=== PATIENT | female | born 1960 | race Caucasian/White ===

== ENCOUNTER 2017-06-07 08:50 | Outpatient (CLI) | payer OTHER | END 2017-06-07 08:51 | disposition home or self-care (01) | LOC: DTY/OP 08:50 | PROVIDERS: ATTEND Surgery | DX: E66.01 Morbid (severe) obesity due to excess calories (principal) | CPT/HCPCS: 97802 ==

== ENCOUNTER 2017-06-07 10:42 | Outpatient (CLI) | payer BC ==
--- NOTE | 2017-06-07 15:41 | RAD ---
BARIUM SWALLOW ESOPHAGRAM: HISTORY: Reflux. K21.9. COMPARISON: None. TECHNIQUE: The patient was brought to the fluoroscopy suite. All questions were answered. Initially, the patient was given half a dose of gas-forming crystals. The patient tolerated this we ll. Subsequently, thick liquid barium was given. Primary and secondary peristalsis was performed. Ther e is reflux of the mid 1/3 esophagus. Small sliding hiatal hernia. Contrast transited through the GE junction without complication. No diverticulum or extensive mass effect. Next, the patient was put in the BRIDGES position. Again, primary and secondary peristalsis was poor. The stomach was flipped up with organoaxial volvulus. No evidence of obstruction. The proximal small bowel appeared normal. IMPRESSION: 1. Small sliding hiatal hernia with reflux to the mid 1/3 esophagus. 2. Primary and secondary peristalsis, likely sequelae of primary reflux disease. 3. 13 mm barium tablet passed through the gastroesophageal junction without complication. 4. Organoaxial volvulus of the stomach. POS: [facility]
== END 2017-06-07 10:43 | disposition home or self-care (01) ==
LOC: RAD 10:42
PROVIDERS: ATTEND Surgery
DX: K21.9 Gastro-esophageal reflux disease without esophagitis (principal); K44.9 Diaphragmatic hernia without obstruction or gangrene; R19.2 Visible peristalsis; K31.89 Other diseases of stomach and duodenum; E66.01 Morbid (severe) obesity due to excess calories
CPT/HCPCS: 74220; 97802

== ENCOUNTER 2017-07-22 17:11 | Outpatient (CLI) | payer BC ==
[2017-07-22 18:21] LABS: Hematocrit 38.8 % (36.0-47.0); Red Blood Cell (RBC) Count 4.04 mill/uL (4.20-5.40); White Blood Cell (WBC) Count 5.4 thou/uL (4.8-10.8)
[2017-07-22 18:52] LABS: ALT (SGPT) 16 U/L (8-55); AST (SGOT) 23 U/L (5-34); Alkaline Phosphatase 80 U/L (40-150); Anion Gap 11 mmol/L (10-20); BUN (Urea Nitrogen) 11 mg/dL (9.8-20.1); Bilirubin, Direct 0.3 mg/dL (0.1-0.3); Bilirubin, Total 0.7 mg/dL (0.2-1.2); Calc. Creatinine Clearance 0 mL/min (70-130); Calcium 9.4 mg/dL (7.8-10.44); Carbon Dioxide 26 mmol/L (22-29); Chloride 105 mmol/L (98-107); Estimated GFR-MDRD 87; Globulin 2.7 g/dL (2.4-3.5); Protein, Total 6.9 g/dL (6.0-8.3)
--- NOTE | 2017-07-22 19:06 | RAD ---
CHEST TWO VIEWS: History: Pre-operative exam. Comparison: None. FINDINGS: Normal cardiac silhouette. The pulmonary vessels and hilum are normal. No masses or consolidation. No pneumothorax or osseous abnormalities. IMPRESSION: No acute cardiopulmonary process. POS: [facility]
[2017-07-22 20:52] LABS: Neutrophil 48 % (42-75)
--- NOTE | 2017-07-23 13:13 | EKG ---
Test Reason : Blood Pressure : / mmHG Vent. Rate : 056 BPM Atrial Rate : 056 BPM P-R Int : 146 ms QRS Dur : 078 ms QT Int : 418 ms P-R-T Axes : 004 013 041 degrees QTc Int : 403 ms Sinus bradycardia Otherwise normal ECG No previous ECGs available Confirmed by MIRTA PEGUERO ([id number]) on 07/23/2017 1:13:30 PM Referred By: SHAYAN Confirmed By:MIRTA PEGUERO
== END 2017-07-22 17:12 | disposition home or self-care (01) ==
LOC: LABBT 17:11
PROVIDERS: ATTEND Surgery
DX: Z01.818 Encounter for other preprocedural examination (principal); E66.01 Morbid (severe) obesity due to excess calories
CPT/HCPCS: 71020; 80053; 80076; 83036; 85025; 93005; 93010

== ENCOUNTER 2017-07-25 06:58 | Inpatient (IN) | payer BC ==
[2017-07-25] MEDS ORDERED: Heparin 5,000 UNITS/ML VIAL ONE (08:00)
[2017-07-25] MEDS ORDERED: CEFAZOLIN/Water 2 GM/20 ML SYRINGE ONE (08:00)
[2017-07-25] MEDS ORDERED: Bupivacaine/Epinephrine 0.25% 30 ML VIAL ONE (09:12)
[2017-07-25] MEDS ORDERED: Midazolam HCl 2 mg/2 ml Vial ONE ×2 (09:57→09:59)
[2017-07-25] MEDS ORDERED: Fentanyl 100 MCG/2 ML VIAL ONE (09:59)
[2017-07-25] MEDS ORDERED: HYDROmorphone 0.5 MG/0.5 ML SYRINGE ONE ×2 (09:59→12:01)
[2017-07-25] MEDS ORDERED: Lidocaine 1% (PF) 30 ML VIAL ONE (09:59)
[2017-07-25] MEDS ORDERED: Dextrose 5% in Water 1,000 ML IV PRN (11:47)
[2017-07-25] MEDS ORDERED: Promethazine HCl 25 MG/ML VIAL IM PRN ×3 (11:47→11:56)
[2017-07-25] MEDS ORDERED: hydrALAZINE 20 MG/ML VIAL SLOW IVP PRN (11:47)
[2017-07-25] MEDS ORDERED: Dextrose 50% Abboject 50 ML SYRINGE SLOW IVP PRN (11:47)
[2017-07-25] MEDS ORDERED: diphenhydrAMINE 50 MG/ML VIAL IVP PRN ×2 (11:47→11:56)
[2017-07-25] MEDS ORDERED: Hydrocodone-Acetamin 15 ML UDCUP PO PRN (11:47)
[2017-07-25] MEDS ORDERED: Ondansetron HCl/PF 4 MG/2 ML Vial IVP PRN ×3 (11:47→11:56)
[2017-07-25] MEDS ORDERED: HYDROmorphone 2 MG/ML VIAL SLOW IVP PRN (11:56)
[2017-07-25] MEDS ORDERED: Naloxone HCl 0.4 mg/ml Vial IV PRN (11:56)
[2017-07-25] MEDS ORDERED: HYDROmorphone 10 mg/100 ml CADD IVPB PRN (11:56)
[2017-07-25] MEDS ORDERED: Zolpidem Tartrate 5 MG TAB PO PRN (11:56)
[2017-07-25] MEDS ORDERED: Promethazine HCl 25 MG/ML VIAL SLOW IVP PRN (11:56)
[2017-07-25] MEDS ORDERED: diphenhydrAMINE 25 MG CAP PO PRN (11:56)
[2017-07-25] MEDS ORDERED: diphenhydrAMINE 50 MG/ML VIAL IM PRN (11:56)
[2017-07-25] MEDS ORDERED: Communication Order-Pharmacy FS SCH (12:00)
--- NOTE | 2017-07-25 12:14 | OP ---
PREOPERATIVE DIAGNOSIS: Gastric torsion with slipped lap band. SURGEON: Mart Christianson M.D. PROCEDURE: Laparoscopic removal of lap band and port with sleeve gastrectomy. INDICATIONS: This is a 56-year-old female who had a lap band that started having severe dysphagia de spite an empty band swallow showed what appeared to be gastric torsion. FINDINGS: The fundus was torsed, but was able to be untorsed. A 38-Mongolian bougie was used. DESCRIPTION OF PROCEDURE: After informed consent was obtained, the patient was taken to the operatin g room and given general endotracheal anesthesia, placed in the supine position. The abdomen was pre pped and draped in the usual fashion. Local anesthesia infiltrated subcutaneously and deep. A 12 mm incision was performed approximately 8 inches below the xiphoid slightly to the left. Veress needle inserted. Drop test performed. Pneumoperitoneum was created to a volume of 2 liters of carbon diox miguel. Utilizing a bladeless 12 mm trocar and 0 degree laparoscope, direct visual entry in the abdomin al cavity was performed. Pneumoperitoneum was then created to a pressure of 15 mmHg. The patient wa s placed in steep reverse Trendelenburg position. Nathansen liver retractor inserted. Left lobe of liver retracted superiorly. Pylorus identified a 12 mm port placed on the right beneath it and two 1 2s placed left subcostal, one of which was where the port of the lap band was. The lap band tubing w as dissected out and then divided just band side of the connecting clip. Then, this was traced back to the band and the band was dissected out sharply with Metzenbaum scissors. The capsule was incised with the LigaSure circumferentially. The buckle was unbuckled and the band taken from around the st ach. It was removed from the left upper quadrant incisions. Then, the omentum was taken off the g reater curvature utilizing the LigaSure 5 cm from the pylorus. The short gastrics divided with LigaS ure and the left crura defined with the LigaSure. A 38-Mongolian bougie then inserted and directed into the antrum. The linear 60 mm green load stapler used to divide the antrum to the bougie, gold load along the bougie, and a series of blues through the angle of His. Intraoperative endoscopy was perfo rmed. The video endoscope inserted under direct vision and advanced into the sleeve. The staple monet e inspected. There was no bleeding. Staple line then tested by inflating the new stomach with press urized air under water. There was no air leak. Stomach decompressed. Scope removed. The remnant s tomach removed from the abdomen through the left upper port site. The lap band port was dissected ou t and removed. The fascia closed with 0 Vicryl suture and the GraNee needle. Trocars and retractors removed. The skin closed with interrupted 4-0 Rapide. Dermabond applied. The patient tolerated th e procedure well and transferred to recovery in good condition. Sponge and needle count verified cor rect x2.
[2017-07-25] MEDS ORDERED: CEFAZOLIN/Water 2 GM/20 ML SYRINGE SLOW IVP SCH (14:00)
[2017-07-25] MEDS: D5 1/2 NS w/20 mEq KCL 1,000 ML IV SCH ×2 (14:52→20:24)
[2017-07-25] MEDS: Ketorolac Tromethamine 30 MG/ML VIAL IVP SCH ×3 (14:54→23:34)
[2017-07-25] MEDS: Acetaminophen 1,000 MG in Premix Bag 1 BAG IVPB SCH ×3 (14:54→23:34)
[2017-07-25] MEDS ORDERED: Glycopyrrolate 0.2 MG/ML 5 ML SYRINGE ONE (17:03)
[2017-07-25] MEDS ORDERED: Ketorolac Tromethamine 30 MG/ML VIAL ONE (17:03)
[2017-07-25] MEDS ORDERED: Ondansetron HCl/PF 4 MG/2 ML Vial ONE (17:03)
[2017-07-25] MEDS ORDERED: Lidocaine 1% PF 5 ML VIAL ONE (17:03)
[2017-07-25] MEDS ORDERED: Propofol 200 MG/20 ML VIAL ONE (17:03)
[2017-07-25] MEDS ORDERED: Dexamethasone 20 MG/5 ML VIAL ONE (17:03)
[2017-07-25 18:28] VITALS: BMI 33.5
[2017-07-25] MEDS: CEFAZOLIN/Water 2 GM/20 ML SYRINGE SLOW IVP SCH (20:27)
[2017-07-25] MEDS ORDERED: Pantoprazole 40 MG VIAL IVP SCH (21:00)
[2017-07-26] MEDS: D5 1/2 NS w/20 mEq KCL 1,000 ML IV SCH ×2 (04:18→12:39)
[2017-07-26] MEDS: CEFAZOLIN/Water 2 GM/20 ML SYRINGE SLOW IVP SCH (04:57)
[2017-07-26] MEDS: Acetaminophen 1,000 MG in Premix Bag 1 BAG IVPB SCH (04:57)
[2017-07-26] MEDS: Ketorolac Tromethamine 30 MG/ML VIAL IVP SCH ×2 (04:58→12:33)
[2017-07-26 05:43] LABS: #Lymphocytes 1.1 thou/uL (1.20-3.40); #Monocytes 0.5 thou/uL (0.11-0.59); #Neutrophils 5.1 thou/uL (1.40-6.50); %Basophils 0.1 % (0.0-1.0); %Eosinophils 0.1 % (0.0-10.0); %Lymphocytes 15.9 % (21.0-51.0); Mean Platelet Volume 10.1 fL (7.4-10.4); Red Blood Cell (RBC) Count 3.62 mill/uL (4.20-5.40); White Blood Cell (WBC) Count 6.6 thou/uL (4.8-10.8)
[2017-07-26 05:59] LABS: Anion Gap 5 mmol/L (10-20); BUN (Urea Nitrogen) 10 mg/dL (9.8-20.1); Calc. Creatinine Clearance 124 mL/min (70-130); Calcium 8.8 mg/dL (7.8-10.44); Carbon Dioxide 28 mmol/L (22-29); Chloride 108 mmol/L (98-107); Estimated GFR-MDRD 90
[2017-07-26] MEDS ORDERED: Enoxaparin Sodium 40 MG/0.4 ML SYRINGE SC SCH (09:00)
--- NOTE | 2017-07-26 09:15 | RAD ---
SINGLE CONTRAST UPPER GI: Date: 07/26/17 HISTORY: 56-year-old female status post bariatric surgery evaluation. FLUOROSCOP TIME: 0.3 minutes. DOSE: 7.071 Gy*cm^2. TECHNIQUE/FINDINGS: The patient was given 15 mL of Gastrografin orally in the upright position. Contrast media progressed through the esophagus and postoperative stomach. IMPRESSION: Unremarkable 15 mL Gastrografin swallow. POS: [facility]
[2017-07-26] MEDS ORDERED: Iopamidol 300 61% 30 ML VIAL ONE (11:41)
[2017-07-26 12:29] VITALS: BP 109/71; TEMP 98.4
--- NOTE | 2017-07-26 19:17 | DIS ---
DISCHARGE DIAGNOSIS: Gastric volvulus, gastric outlet obstruction. PROCEDURES DURING ADMISSION: Laparoscopic removal of band and port with conversion to sleeve gastrec singh, EGD, postoperative Gastrografin swallow. HOSPITAL COURSE: The patient was admitted and taken to the operating room where she underwent detors ion of her stomach with removal of band and port and sleeve gastrectomy with intraoperative esophagog astroscopy. Postoperatively, she did well. Swallow was fine. She was started on liquids. She is t olerating well. Her pain is controlled on p.o. medications. She is discharged home on hydrocodone a nd Zofran. She will follow up with me in 2 weeks.
== END 2017-07-26 13:20 | disposition home or self-care (01) | DRG 909 ==
LOC: SDC 06:58 → SURG B 13:09
PROVIDERS: ADMIT Surgery; ATTEND Surgery
PROC: 0DP64CZ Removal of Extraluminal Device from Stomach, Percutaneous Endoscopic Approach (ICD-10-PCS; principal; 2017-07-25)
PROC: 0DB64Z3 Excision of Stomach, Percutaneous Endoscopic Approach, Vertical (ICD-10-PCS; 2017-07-25)
PROC: 0DJ08ZZ Inspection of Upper Intestinal Tract, Via Natural or Artificial Opening Endoscopic (ICD-10-PCS; 2017-07-25)
DX: T85.628A Displacement of other specified internal prosthetic devices, implants and grafts, initial encounter (principal); E66.01 Morbid (severe) obesity due to excess calories; I10 Essential (primary) hypertension; K31.89 Other diseases of stomach and duodenum; R13.12 Dysphagia, oropharyngeal phase
CPT/HCPCS: 36415; 74241; 80048; 85025; 88307; 88312; 94760; C9113; J0131; J1100; J1170; J1644; J1650; J1885; J2001; J2250; J2405; J2550; J2704; J3010

== ENCOUNTER 2017-08-22 15:59 | Emergency (ER) | payer BC ==
[~2017-08-22 15:59] MED LIST: ISOVUE-370 76%-LOCM 1 ML ONE; Iopamidol 370 76% 50 ML VIAL FS ONE
[2017-08-22 17:15] LABS: #Basophils 0.1 thou/uL (0.0-0.2); #Eosinphils 0.2 thou/uL (0.0-0.7); #Lymphocytes 2.2 thou/uL (1.20-3.40); #Monocytes 0.3 thou/uL (0.11-0.59); #Neutrophils 2.2 thou/uL (1.40-6.50); %Basophils 1.2 % (0.0-1.0); %Eosinophils 3.4 % (0.0-10.0); %Lymphocytes 43.8 % (21.0-51.0); %Monocytes 6.7 % (0.0-10.0); %Neutrophils 44.9 % (42.0-75.0); Hemoglobin 13.6 g/dL (12.0-16.0); Mean Corpuscular HGB CONC 32.8 g/dL (32.0-36.0); Mean Corpuscular Hemoglobin 31.8 pg (27.0-31.0); Mean Corpuscular Volume 96.9 fl (81.0-99.0); Mean Platelet Volume 10.2 fL (7.4-10.4); Platelet Count 165 thou/uL (130-400); RBC Distribution Width 11.6 % (11.5-14.5); Red Blood Cell (RBC) Count 4.27 mill/uL (4.20-5.40); White Blood Cell (WBC) Count 4.9 thou/uL (4.8-10.8)
[2017-08-22 17:39] LABS: ALT (SGPT) 87 U/L (8-55); AST (SGOT) 92 U/L (5-34); Albumin 4.1 g/dL (3.5-5.0); Alkaline Phosphatase 159 U/L (40-150); Anion Gap 14 mmol/L (10-20); BUN (Urea Nitrogen) 9 mg/dL (9.8-20.1); Bilirubin, Total 0.6 mg/dL (0.2-1.2); Calc. Creatinine Clearance 0 mL/min (70-130); Calcium 10.5 mg/dL (7.8-10.44); Carbon Dioxide 25 mmol/L (22-29); Chloride 107 mmol/L (98-107); Estimated GFR-MDRD 84; Glucose 89 mg/dL (70-105); Potassium 4.2 mmol/L (3.5-5.1); Protein, Total 7.1 g/dL (6.0-8.3); Sodium 142 mmol/L (136-145)
[2017-08-22] MEDS ORDERED: Ondansetron HCl/PF 4 MG/2 ML Vial ONE (18:30)
[2017-08-22] MEDS ORDERED: Morphine 4 MG/ML VIAL ONE (18:30)
[2017-08-22 20:39] LABS: Bilirubin Negative (Negative); Blood, Urine Negative (Negative); Clarity CLEAR (Clear); Glucose, Urine (Dipstick) Negative (Negative); Leukocyte Negative (Negative); Nitrite Negative (Negative); Protein, Urine (Dipstick) Negative (Neg-Trace); Specific Gravity, Urine 1.012 (1.002-1.036); Urobilinogen 0.2 mg/dL (0.2-1.0)
[2017-08-22] MEDS ORDERED: Morphine 2 MG/ML SYRINGE ONE (21:43)
--- NOTE | 2017-08-22 22:01 | ULT ---
GALLBLADDER ULTRASOUND: 08/22/17 HISTORY: Abdominal pain. Left upper quadrant to back pain. Nausea and vomiting. COMPARISON: None. TECHNIQUE: Utilizing multihertz transducer, sonographic imaging of the right upper quadrant is performed in the longitudinal and transverse plane. FINDINGS: The pancreas is obscured by bowel gas. Hepatic parenchyma has a normal echotexture. No hepatic masses or intrahepatic biliary dilatation. The contour of the hepatic margin is maintained. Right hepatic l obe measures 13.7 cm. Gallbladder appears to be contacted. Questionable cholelithiasis without definite gallbladder wall th ickening or pericholecystic fluid. Negative Prajapati's sign. Common bile duct diameter is difficult to appreciate. Main portal vein is patent. Appropriate directional flow. There is right renal cortical thinning. No hydronephrosis. Right kidney measures 4.7 x 9.5 x 4.3 cm. IMPRESSION: Limited evaluation due to bowel gas. Contracted gallbladder. There is sonographic evidence of choleli thiasis without definite sonographic evidence of cholecystitis. POS: [facility]
--- NOTE | 2017-08-22 22:17 | CT ---
EXAM: ABDOMEN CT WITH CONTRAST PELVIC CT WITH CONTRAST 08/22/17 HISTORY: Abdominal pain. Previous lap band. COMPARISON: None. TECHNIQUE: An abdomen and pelvic CT are performed with IV and enteric contrast. Coronal reformatted images are s ubmitted for interpretation. CORRELATION: Gallbladder ultrasound 08/22/17. FINDINGS: ABDOMEN CT: Lung bases are clear. Heart size is normal. No pericardial effusion. The descending thoracic aorta an d abdominal aorta have a normal caliber. No periaortic fat stranding. There is mild dilatation of the intrahepatic biliary system. Gallbladder is contacted, without eviden ce of cholecystitis. The common bile duct is enlarged measuring approximately 1.[address] evidence of choledocholithiasis. No masses in the pancreas. Adrenal glands and spleen are unremarkable. Symmetric enhancement of the kidneys. Bilaterally, no obstructive uropathy. Symmetric attenuation of the psoas muscles. No gastrohepatic, retrocrural or periportal lymphadenopat hy. No mesenteric mass, lymphadenopathy, free air of free fluid. There is evidence of previous surgical change in the stomach. The duodenum has a normal appearance. M ultiple normal caliber small bowel loops. Ileocecal junction is normal. Normal caliber appendix. Cont rast and fecal material opacify a normal caliber colon. No evidence of colonic obstruction. Nonspecif ic hypodensity in the anterior left abdominal subcutaneous fat measuring 1.9 x [address]: No mass, lymphadenopathy, free air or free fluid. Urinary bladder is unremarkable. Uterus and adnexal structures are also unremarkable. There are no lytic or blastic lesions in the osseous structures. IMPRESSION: 1. Contracted gallbladder. 2. Dilatation of the intra and extrahepatic biliary system without CT evidence of choledocholith iasis. ERCP is recommended. 3. Normal caliber appendix. POS: [facility]
== END 2017-08-22 22:49 | disposition home or self-care (01) ==
LOC: ERS 15:59
DX: K80.20 Calculus of gallbladder without cholecystitis without obstruction (principal); I10 Essential (primary) hypertension
CPT/HCPCS: 36415; 74177; 76705; 80053; 81003; 83605; 85025; 96361; 96374; 96375; 96376; J2270; J2405

== ENCOUNTER 2020-04-14 07:58 | Outpatient (CLI) | payer BC, OTHER ==
[2020-04-14 17:56] LABS: #Basophils 0.1 thou/uL (0.0-0.2); #Eosinphils 0.1 thou/uL (0.0-0.7); #Lymphocytes 2.2 thou/uL (1.20-3.40); #Monocytes 0.4 thou/uL (0.11-0.59); #Neutrophils 2.3 thou/uL (1.40-6.50); %Basophils 1.2 % (0.0-1.0); %Eosinophils 2.2 % (0.0-10.0); %Lymphocytes 43.3 % (21.0-51.0); %Monocytes 7.5 % (0.0-10.0); %Neutrophils 45.9 % (42.0-75.0); Hemoglobin 12.3 g/dL (12.0-16.0); Mean Corpuscular HGB CONC 32.2 g/dL (32.0-36.0); Mean Corpuscular Hemoglobin 30.6 pg (27.0-31.0); Mean Corpuscular Volume 95.1 fL (78.0-98.0); Mean Platelet Volume 10.2 fL (7.4-10.4); Platelet Count 176 thou/uL (130-400); RBC Distribution Width 11.3 % (11.5-14.5); Red Blood Cell (RBC) Count 4.03 mill/uL (4.20-5.40)
[2020-04-14 18:18] LABS: ALT (SGPT) 8 U/L (8-55); AST (SGOT) 18 U/L (5-34); Albumin 4.1 g/dL (3.5-5.0); Alkaline Phosphatase 79 U/L (40-110); Anion Gap 9 mmol/L (10-20); BUN (Urea Nitrogen) 11 mg/dL (9.8-20.1); Bilirubin, Direct 0.2 mg/dL (0.1-0.3); Bilirubin, Total 0.4 mg/dL (0.2-1.2); Calc. Creatinine Clearance 0 mL/min (70-130); Carbon Dioxide 29 mmol/L (22-29); Chloride 108 mmol/L (98-107); Estimated GFR-MDRD 72; Glucose 81 mg/dL (70-105); Potassium 4.3 mmol/L (3.5-5.1); Protein, Total 6.5 g/dL (6.0-8.3); Sodium 142 mmol/L (136-145)
[2020-04-15 13:41] LABS: SARS-CoV-2 MS2 Positive; SARS-CoV-2 N Gene Negative; SARS-CoV-2 S Gene Negative; SARS-CoV-2 by NAA Not Detected (NotDetected); SARS-CoV-2 orf1ab Negative
== END 2020-04-14 07:59 | disposition home or self-care (01) ==
LOC: LABBT 07:58
PROVIDERS: ATTEND Surgery
DX: Z01.818 Encounter for other preprocedural examination (principal); Z20.828 Contact with and (suspected) exposure to other viral communicable diseases; K80.20 Calculus of gallbladder without cholecystitis without obstruction
CPT/HCPCS: 80048; 80076; 85025; 87635; 93005; 93010; U0003

== ENCOUNTER 2020-04-18 07:49 | Inpatient (IN) | payer BC ==
[2020-04-14 08:42] VITALS: BMI 27.4
[2020-04-18] MEDS ORDERED: cefOXitin Sodium/Dextrose 2 GM/50 ML BAG ONE (08:29)
[2020-04-18] MEDS ORDERED: Lidocaine 1% w/Epinephrine 1:100K 20 ML VIAL ONE (10:35)
[2020-04-18] MEDS ORDERED: Bupivacaine 0.25% HCL 30 ML VIAL ONE (10:35)
[2020-04-18] MEDS ORDERED: Iothalamate Meglumine 60% 50 ML VIAL FS ONE (10:35)
[2020-04-18] MEDS ORDERED: Fentanyl 100 MCG/2 ML VIAL ONE ×3 (10:36→12:31)
[2020-04-18] MEDS ORDERED: Midazolam HCl 2 mg/2 ml Vial ONE (10:36)
[2020-04-18] MEDS ORDERED: PROPOFOL 200 MG/20 ML VIAL ONE (10:47)
[2020-04-18] MEDS ORDERED: Glycopyrrolate 0.2 MG/ML 5 ML SYRINGE ONE ×2 (10:47→12:39)
[2020-04-18] MEDS ORDERED: Ketorolac Tromethamine 30 MG/ML VIAL ONE (10:47)
[2020-04-18] MEDS ORDERED: Rocuronium Bromide 10 MG/ML (10ML VIAL) ONE (10:47)
[2020-04-18] MEDS ORDERED: Dexamethasone 20 MG/5 ML VIAL ONE (10:47)
[2020-04-18] MEDS ORDERED: Lidocaine 1% PF 5 ML VIAL ONE (10:47)
[2020-04-18] MEDS ORDERED: Ondansetron PF 4 MG/2 ML Vial ONE (10:47)
[2020-04-18] MEDS ORDERED: Ondansetron HCl/PF 4 MG/2 ML Vial IVP PRN (11:27)
[2020-04-18] MEDS ORDERED: Promethazine HCl 25 MG/ML VIAL IM PRN ×3 (11:27→16:29)
[2020-04-18] MEDS ORDERED: Promethazine HCl 25 MG/ML VIAL SLOW IVP PRN (11:27)
[2020-04-18] MEDS ORDERED: Morphine 2 MG/ML VIAL SLOW IVP PRN ×2 (11:52→16:00)
[2020-04-18] MEDS ORDERED: Calcium Carbonate 500 MG ChewTAB PO PRN (11:52)
[2020-04-18] MEDS ORDERED: Mag-Al 1200 mg/1200 mg/30 ML UDCUP PO PRN (11:52)
[2020-04-18] MEDS ORDERED: hydrALAZINE 20 MG/ML VIAL SLOW IVP PRN (11:52)
[2020-04-18] MEDS ORDERED: Dextrose 50% Abboject 50 ML SYRINGE SLOW IVP PRN (11:52)
[2020-04-18] MEDS ORDERED: Ondansetron PF 4 MG/2 ML Vial IVP PRN ×2 (11:52→16:29)
[2020-04-18] MEDS ORDERED: Dextrose 5% in Water 1,000 ML IV PRN (11:52)
[2020-04-18] MEDS ORDERED: Ketorolac Tromethamine 30 MG/ML VIAL IVP SCH (12:00)
--- NOTE | 2020-04-18 14:27 | OP ---
DATE OF PROCEDURE: 04/18/2020 PREOPERATIVE DIAGNOSIS: Symptomatic cholelithiasis with dilated common duct. PROCEDURE PERFORMED: Laparoscopic cholecystectomy with cholangiogram. INDICATIONS: This is a 59-year-old female who has been having episodic right upper quadrant pain, radiating to back, associated with nausea. Ultrasound showed thickened gallbladder wall with a dilated common duct. FINDINGS: There was quite a bit of scar and inflammation, the transverse colon was stuck to the gallbladder. An intraoperative cholangiogram showed a filling defect in the distal common bile duct, no flow into the duodenum, and dilated proximal duct. DESCRIPTION OF PROCEDURE: After informed consent was obtained, the patient was taken to the operating room, given general endotracheal anesthesia, and placed in the supine position. Abdomen was prepped and draped in the usual fashion. Local anesthesia was infiltrated subcutaneously and deep. A subumbilical incision was performed. Subcu divided sharply. The fascia was grasped and 2 stay sutures of 0 Vicryl placed through each side of midline. Midline incised. Digital palpation revealed no local adhesions. A blunt 12-mm trocar inserted. Pneumoperitoneum was created to a pressure of 15 mmHg. A 0-degree laparoscope inserted under direct vision. Three 5-mm ports were placed subcostally. The gallbladder was not immediately visualized, the transverse colon was covering and stuck to it. I was able to reflect that back to find the gallbladder, advanced it, and then using blunt and sharp dissection to take the gallbladder off the colon and then the peritoneum opened distally to expose the cystic artery and cystic duct in a critical view. Clip in place at the base of the gallbladder. An incision made in the cystic duct. Intraoperative cholangiogram was performed utilizing fluoroscopy. This showed a dilated common bile duct. There was a filling defect distally and no flow into the duodenum. The catheter was removed. The duct triply ligated and divided. The artery triply ligated and divided. The gallbladder removed from its fossa utilizing electrocautery, placed in an Endosac, removed from the abdomen in an Endosac. Hemostasis was assured. Trocars and retractors removed. The fascia closed with interrupted 2-0 Vicryl suture. The skin closed with interrupted 4-0 Rapide. Dermabond applied. The patient tolerated the procedure well, transferred to Recovery in good condition. Sponge and needle count verified correct x2. Job ID: [id number]
[2020-04-18] MEDS: D5 1/2 NS w/20 mEq KCL 1,000 ML IV SCH ×2 (15:00→20:52)
[2020-04-18] MEDS: Morphine 4 MG/ML VIAL SLOW IVP PRN ×2 (15:01→15:47)
[2020-04-18] MEDS ORDERED: Morphine 4 MG/ML VIAL SLOW IVP PRN (16:00)
[2020-04-18] MEDS ORDERED: diphenhydrAMINE 50 MG/ML VIAL IVP PRN (16:29)
[2020-04-18] MEDS ORDERED: diphenhydrAMINE 50 MG/ML VIAL IM PRN (16:29)
[2020-04-18] MEDS ORDERED: Naloxone HCl 0.4 mg/ml Vial IV PRN (16:29)
[2020-04-18] MEDS ORDERED: diphenhydrAMINE 25 MG CAP PO PRN (16:29)
[2020-04-18] MEDS ORDERED: fentaNYL Citrate/PF 2,000 MCG in Sodium Chloride 0.9% 60 ML IV PRN (16:29)
[2020-04-18] MEDS ORDERED: Zolpidem Tartrate 5 MG TAB PO PRN (16:29)
--- NOTE | 2020-04-18 16:29 | RAD ---
EXAM: Cholangiogram in surgery HISTORY: Cholelithiasis COMPARISON: None FINDINGS: Limited intraoperative fluoroscopic views were taken during a cholangiogram in surgery. The common bile duct is enlarged in caliber with a questionable filling defect in the distal common b ile duct. No leakage from the common bile duct. Contrast is not seen passing into the duodenum. No abnormality of the intrahepatic bile ducts. IMPRESSION: Possible distal common bile duct filling defect with lack of passage of the contrast into the duodenum
[2020-04-18] MEDS ORDERED: Communication Order-Pharmacy FS PRN (16:30)
[2020-04-18] MEDS: Ketorolac Tromethamine 30 MG/ML VIAL IVP SCH ×2 (17:05→23:38)
[2020-04-18] MEDS: cefOXitin Sodium/Dextrose,Iso 2 GM in Premix Bag 1 BAG IVPB SCH (18:08)
--- NOTE | 2020-04-18 18:12 | PDOC.HHP ---
Hospitalist HPI - History of Present Illness Symptomatic cholelithiasis with dilated common bile duct History of Present Illness: PCP: None The patient is a 59-year-old female with no significant past medical history presents to the hospital for scheduled laparoscopic cholecystectomy with cholangiogram with Dr. Christianson. The patient reports several months of right upper quadrant abdominal pain with associated nausea. She described the abdominal pain is intermittently sharp, radiating to her right shoulder exacerbated by oral intake, relieved by nothing. During the procedure, the patient had sinus bradycardia on her EKG. The nurse reported that when she came up to the floor status post surgery, her temperature was 97.1 and she was shaking. After warming the patient, her heart rate improved. Patient denies any chest pain, heart palpitations, shortness of breath. She denies feeling lightheaded or having nausea. Reviewing her preop EKG, she was sinus bradycardia, 59 bpm with normal [place] interval, QRS, QT interval. Her CMP and CBC were unremarkable preop. ED Course: Direct admit. Hospitalist ROS - Review of Systems Constitutional: denies: fever, chills Respiratory: denies: cough, shortness of breath, SOB with excertion Cardiovascular: denies: chest pain, palpitations, edema, light headedness Genitourinary: denies: dysuria Neurological: denies: weakness, confusion All other systems reviewed; all pertinent +/- noted in HPI/Subj - Medication Medications: Active Medications Generic Name Dose Route Start Last Admin Trade Name Freq PRN Reason Stop Dose Admin Al Hydroxide/Mg Hydroxide 15 ml 04/18/20 11:52 04/18/20 15:26 Maalox PO 15 ml Q6H PRN Administration Dyspepsia Potassium Chloride/Dextrose/Sod Cl 1,000 mls @ 120 mls/hr 04/18/20 12:00 15:00 D5 1/2 Ns W/20 Meq Kcl IV 1,000 mls .Q8H20M FLETCHER Administration Fentanyl Citrate 2,000 mcg/ 100 mls @ 0 mls/hr 04/18/20 16:29 04/18/20 17:14 Sodium Chloride IV 100 mls INF PRN Administration Pain As Directed Ketorolac Tromethamine 30 mg 04/18/20 18:00 04/18/20 17:05 Toradol IVP 04/20/20 18:01 30 mg Q6HR FLETCHER Administration Home medications: None Allergies: NKDA Hospitalist History - Past Medical History Source: patient, family (), RN notes reviewed Other Medical History: PAST MEDICAL HISTORY: None PAST SURGICAL HISTORY: Gastric sleeve 08/04 LAP-BAND SOCIAL HISTORY: Never a smoker, denies any illicit drug use, alcohol socially. Lives with her at home. Ambulates without any assist devices. FAMILY HISTORY: Noncontributory for cardiac disease, pulmonary disease - Exam General Appearance: awake alert General - other findings: Uncomfortable, nontoxic in appearance Eye: anicteric sclera ENT: normocephalic atraumatic Neck: supple, symmetric Heart: RRR, no gallops, no rubs, normal peripheral pulses, II/IV Respiratory: CTAB, no wheezes, no rales, no ronchi, normal chest expansion, no tachypnea Gastrointestinal: soft, no guarding, no rigidity Gastrointestinal - other findings: Hypoactive bowel sounds Extremities: no cyanosis, no edema Skin: no rashes Neurological: normal sensation to touch, no weakness, no focal deficits Psychiatric: normal affect, A&O x 3 Hospitalist Results - Labs Additional comment: Preop labs: Sodium 142 Potassium 4.3 BUN 11 Creatinine 0.82 Calcium 9 Glucose 81 Hemoglobin 12.3, hematocrit 38.3, WBCs 5,platelets 176 - EKG Interpretation EKG: Normal sinus rhythm, 59 bpm, no ST elevations. Hospitalist H&P A/P - Problem (1) Bradycardia following surgery Code(s): I97.89 - OTH POSTPROC COMP AND DISORDERS OF THE CIRC SYS, NEC Status : Acute Assessment and Plan: Patient is admitted to the surgical floor, inpatient status. Expected length of stay greater than 2 midnights. We were consulted for asymptomatic bradycardia. Patient was bradycardic during a lap cholecystectomy with cholangiogram with reported sinus bradycardia, 49 bpm and temperature 97.1. With improvement to temperature, heart rate improved to the 60s. Patient was asymptomatic, no chest pain, shortness of breath, or palpitations. Review of patient's preop EKG showed sinus bradycardia, 59 bpm. Preop labs were unremarkable, including electrolytes. She has no cardiovascular risk factors. Will repeat CMP, CBC and check a TSH and mag level. Will order echocardiogram. (2) Heart murmur Code(s): R01.1 - CARDIAC MURMUR, UNSPECIFIED Status: Chronic Assessment and Plan: Patient reports history of known murmur. Upon exam, patient had a 2/6 murmur. - Plan Plan: SCDs for DVT prophylaxis. Pepcid for GI prophylaxis. Full code. Designated medical decision-maker is her , Sumit at [phone] Rainey.
[2020-04-18 18:43] LABS: #Basophils 0.1 thou/uL (0.0-0.2); #Lymphocytes 0.4 thou/uL (1.20-3.40); #Monocytes 0.1 thou/uL (0.11-0.59); #Neutrophils 6.9 thou/uL (1.40-6.50); %Basophils 1.1 % (0.0-1.0); %Eosinophils 0.1 % (0.0-10.0); %Monocytes 1.4 % (0.0-10.0); %Neutrophils 92.4 % (42.0-75.0); Hemoglobin 12.9 g/dL (12.0-16.0); Mean Corpuscular HGB CONC 33.3 g/dL (32.0-36.0); Mean Corpuscular Hemoglobin 31.4 pg (27.0-31.0); Mean Corpuscular Volume 94.4 fL (78.0-98.0); Mean Platelet Volume 9.9 fL (7.4-10.4); Platelet Count 142 thou/uL (130-400); RBC Distribution Width 11.2 % (11.5-14.5); Red Blood Cell (RBC) Count 4.11 mill/uL (4.20-5.40); White Blood Cell (WBC) Count 7.4 thou/uL (4.8-10.8)
[2020-04-18 18:52] LABS: ALT (SGPT) 112 U/L (8-55); AST (SGOT) 232 U/L (5-34); Albumin 3.9 g/dL (3.5-5.0); Alkaline Phosphatase 97 U/L (40-110); Anion Gap 11 mmol/L (10-20); BUN (Urea Nitrogen) 11 mg/dL (9.8-20.1); Calc. Creatinine Clearance 90 mL/min (70-130); Carbon Dioxide 26 mmol/L (22-29); Chloride 105 mmol/L (98-107); Estimated GFR-MDRD 81; Globulin 2.5 g/dL (2.4-3.5); Glucose 171 mg/dL (70-105); Magnesium 1.9 mg/dL (1.6-2.6); Potassium 4.9 mmol/L (3.5-5.1); Protein, Total 6.4 g/dL (6.0-8.3); Sodium 137 mmol/L (136-145)
--- NOTE | 2020-04-18 19:25 | PDOC.EVN ---
Event Note - Event Note Event Note: Code green: Patient / abdominal pain, radiating midsternum with associated SOB s/p lap henry. Stable VS. afebrile. Abdomen soft, tender to palpation. EKG NSR, no ST elevations, no cardiac risk factors. S/p procedure difficulty managing pain, anesthesia changed from morphine IVP prn to fentanyl [employer]ER. Ordered trop, CXR, KUB, and consult anesthesia for pain control. Dr. Rainey attended code green and agrees with plan of care.
[2020-04-18 20:00] LABS: Troponin I Less than 0.010 ng/mL (< 0.028)
--- NOTE | 2020-04-18 20:06 | RAD ---
Exam: Chest one view HISTORY:Chest pain. Status post laparoscopic cholecystectomy. Comparison: None FINDINGS: Cardiac silhouette: Normal Aorta: Unremarkable Pulmonary vessels: Normal Costophrenic angles: Clear LUNGS: No masses or consolidation. Pneumothorax: None Osseous abnormalities: None IMPRESSION: No acute cardiopulmonary process.
--- NOTE | 2020-04-18 20:07 | RAD ---
Exam: 1 view abdomen HISTORY: Abdominal pain FINDINGS: Nonspecific bowel gas pattern. Surgical clips in left upper quadrant. No suspicious densiti es in the abdomen. There may be free air in the abdomen, presumed to be iatrogenic. IMPRESSION: Nonspecific bowel gas pattern. Possible iatrogenic free air.
[2020-04-18] MEDS: Famotidine/PF 20 mg/2ml Vial SLOW IVP SCH (20:48)
[2020-04-18] MEDS: Famotidine 20 MG TAB PO SCH (20:49)
[2020-04-19] MEDS: cefOXitin Sodium/Dextrose,Iso 2 GM in Premix Bag 1 BAG IVPB SCH ×3 (00:35→17:53)
[2020-04-19] MEDS: D5 1/2 NS w/20 mEq KCL 1,000 ML IV SCH ×3 (00:37→12:31)
--- NOTE | 2020-04-19 02:20 | CON ---
DATE OF CONSULTATION: 04/18/2020 REASON FOR CONSULTATION: Choledocholithiasis seen on intraoperative cholangiogram. CONSULTING PROVIDER: Mart christianson MD HISTORY OF PRESENT ILLNESS: The patient is a 59-year-old female with no significant past medical history, who is presenting to the hospital with increased complaints of right upper quadrant abdominal pain. She states that she had been having intermittent abdominal pain since approximately October 2019, characterized as a cramping/sharp type pain would radiate to the midepigastric region and the right shoulder, was intermittent and reaching a severity of 10/10. This was associated with nausea and vomiting with nonbloody emesis, subjective chills, dry mouth, and increased eructation. The pain was worse with bending over and pressure to the region as well as getting better with fasting states and having a bowel movement. Now initially, the patient was seen by her primary care physician and diagnosed with acid reflux and given an acid reflux medication with no significant improvement in symptoms. With the intermittent symptoms, she learned to deal with them until more recently. Over the last 3 weeks she has significantly worsening of her right upper quadrant abdominal pain, now reaching a severity of 10/10, that was fairly unrelenting with constant nature of the pain and waxing/waning severity. Subsequently, she underwent right laparoscopic cholecystectomy and during the procedure, had an intraoperative cholangiogram that showed a possible filling defect within the common bile duct. Subsequently, she was admitted to the hospital for further evaluation and possible ERCP tomorrow. At the time of the interview, the patient was in significant pain located primarily in the right upper quadrant and extending into her right shoulder that was intermittent in nature with the pain almost completely resolved during the course of the interview. However, it did also recur during the course of the interview with the recurrence of the pain occurring within 20 minutes of resolution/improvement. Otherwise, she denies any fevers, hematemesis, melena, hematochezia, dysphagia, odynophagia, diarrhea, constipation, or weight loss. REVIEW OF SYSTEMS: A 10-category review of systems was obtained with all responses negative except for the pertinent positives as listed in HPI. PAST MEDICAL HISTORY: None. PAST SURGICAL HISTORY: Laparoscopic cholecystectomy earlier today, gastric sleeve surgery in July 2017, and lap band surgery. FAMILY HISTORY: Denies any GI malignancies. SOCIAL HISTORY: Denies any tobacco, alcohol, or illicit drug use. OUTPATIENT MEDICATIONS: Reviewed. ALLERGIES: NO KNOWN DRUG ALLERGIES. PHYSICAL EXAMINATION: VITAL SIGNS: Temperature 97.6, pulse 62, blood pressure 144/84, respiratory rate 18, and saturating 92% on 2 L nasal cannula. GENERAL: The patient was lying or sitting at bedside, in [id number] distress. Alert and oriented x4. Somewhat distractible during the course of her pain as well. HEENT: Normocephalic and atraumatic. NECK: Supple. No JVD or scleral icterus noted. CARDIOVASCULAR: Regular rate and rhythm with no discernible murmurs, gallops, or rubs. RESPIRATORY: Clear to auscultation bilaterally with no discernible wheezes or rales abdomen normoactive bowel sounds. Soft and nondistended. Tenderness to palpation in the right upper quadrant and midepigastric regions. EXTREMITIES: No cyanosis, clubbing, or edema. LABORATORY DATA: Labs obtained on April 14 showed a CBC with a white blood cell count of 5, hemoglobin 12.3, hematocrit 38.3, and platelets 176. Chemistry with a sodium of 142, potassium 4.3, chloride 108, CO2 of 29, BUN 11, creatinine 0.82, glucose 81, AST 18, ALT 8, alkaline phosphatase 79, total bilirubin 0.4, and albumin 4.1. IMAGING DATA: The patient underwent laparoscopic cholecystectomy earlier today with an intraoperative cholangiogram performed during the procedure, showing a possible distant common bile duct filling defect with lack of passage of contrast into the duodenum concerning for choledocholithiasis. ASSESSMENT AND PLAN: The patient is a 59-year-old female with no significant past medical history, presenting with right upper quadrant abdominal pain and choledocholithiasis on intraoperative cholangiogram. Choledocholithiasis. The patient is presenting with a history of intermittent right upper quadrant abdominal pain that has been present since October 2019 and characterized as a cramping/sharp type pain reaching a severity of 10/10. During the course of the workup, she was evaluated by the General Surgery Service (Dr. Mart Christianson) with recommendations to proceed with a laparoscopic cholecystectomy. During the cholecystectomy earlier today, an intraoperative cholangiogram was performed showing the presence of a possible filling defect within the distal common bile duct. At this time, her most recent LFTs do not show an obstructive pattern, which normally should be present with the presence of choledocholithiasis, but given the positive finding on the intraoperative cholangiogram, further evaluation/instrumentation is indicated at this time. Recommendations; 1. Would place the patient on a clear liquid diet today and make her n.p.o. at midnight in anticipation of endoscopic retrograde cholangiopancreatography tomorrow. 2. We will perform endoscopic retrograde cholangiopancreatography tomorrow for extraction of the biliary stone. 3. Agree with placing the patient on antibiotics that covers both Gram negatives and anaerobes. 4. Pain control per primary team. 5. We will continue to trend the patient's LFTs during the course of this admission. We will continue to follow. Please call with any questions. Job ID: [id number]
[2020-04-19 05:25] LABS: #Monocytes 0.9 thou/uL (0.11-0.59); #Neutrophils 6.9 thou/uL (1.40-6.50); %Basophils 0.4 % (0.0-1.0); %Eosinophils 0.1 % (0.0-10.0); %Lymphocytes 11.1 % (21.0-51.0); %Monocytes 9.8 % (0.0-10.0); %Neutrophils 78.7 % (42.0-75.0); Hemoglobin 11.8 g/dL (12.0-16.0); Mean Corpuscular HGB CONC 32.4 g/dL (32.0-36.0); Mean Corpuscular Hemoglobin 30.8 pg (27.0-31.0); Mean Corpuscular Volume 95.2 fL (78.0-98.0); Mean Platelet Volume 10.2 fL (7.4-10.4); Platelet Count 139 thou/uL (130-400); RBC Distribution Width 11.2 % (11.5-14.5); Red Blood Cell (RBC) Count 3.84 mill/uL (4.20-5.40); White Blood Cell (WBC) Count 8.7 thou/uL (4.8-10.8)
[2020-04-19] MEDS: Ketorolac Tromethamine 30 MG/ML VIAL IVP SCH ×3 (05:39→18:47)
[2020-04-19 05:49] LABS: ALT (SGPT) 257 U/L (8-55); AST (SGOT) 362 U/L (5-34); Albumin 3.5 g/dL (3.5-5.0); Alkaline Phosphatase 111 U/L (40-110); Anion Gap 11 mmol/L (10-20); BUN (Urea Nitrogen) 8 mg/dL (9.8-20.1); Bilirubin, Total 1.6 mg/dL (0.2-1.2); Calc. Creatinine Clearance 91 mL/min (70-130); Calcium 8.9 mg/dL (7.8-10.44); Carbon Dioxide 24 mmol/L (22-29); Chloride 105 mmol/L (98-107); Estimated GFR-MDRD 82; Globulin 2.6 g/dL (2.4-3.5); Glucose 165 mg/dL (70-105); Lipase 28 U/L (8-78); Potassium 5.2 mmol/L (3.5-5.1); Protein, Total 6.1 g/dL (6.0-8.3); Sodium 135 mmol/L (136-145)
[2020-04-19] MEDS ORDERED: Lidocaine 1% PF 5 ML VIAL ONE (09:32)
[2020-04-19] MEDS ORDERED: Ondansetron PF 4 MG/2 ML Vial ONE (09:32)
[2020-04-19] MEDS ORDERED: EPHEDRINE 25 MG/5 ML SYRINGE ONE (09:32)
[2020-04-19] MEDS ORDERED: Rocuronium Bromide 10 MG/ML (10ML VIAL) ONE (09:32)
[2020-04-19] MEDS ORDERED: Dexamethasone 20 MG/5 ML VIAL ONE (09:32)
[2020-04-19] MEDS ORDERED: Ketorolac Tromethamine 30 MG/ML VIAL ONE (09:32)
[2020-04-19] MEDS ORDERED: PROPOFOL 200 MG/20 ML VIAL ONE (09:32)
[2020-04-19] MEDS ORDERED: Fentanyl 100 MCG/2 ML VIAL ONE ×3 (10:04→14:25)
[2020-04-19] MEDS ORDERED: Iothalamate Meglumine 60% 50 ML VIAL FS ONE (10:07)
[2020-04-19] MEDS ORDERED: Indomethacin 50 MG SUPP ONE (10:07)
[2020-04-19] MEDS ORDERED: Propofol 500 MG/50 ML VIAL ONE (10:10)
[2020-04-19] MEDS ORDERED: HYDROmorphone 0.5 MG/0.5 ML SYRINGE ONE (10:12)
[2020-04-19] MEDS ORDERED: cefOXitin Sodium/Dextrose 2 GM/50 ML BAG ONE (10:16)
[2020-04-19] MEDS: Famotidine 20 MG TAB PO SCH ×2 (10:26→20:45)
[2020-04-19] MEDS: Famotidine/PF 20 mg/2ml Vial SLOW IVP SCH ×2 (10:27→20:46)
--- NOTE | 2020-04-19 11:53 | PRG ---
DATE OF SERVICE: 04/19/2020 SUBJECTIVE: The patient had a very rough night with extreme pain in the right upper quadrant and back, some nausea. OBJECTIVE: VITAL SIGNS: Her temperature is 97.7, pulse is 47, blood pressure is 131/78. She is awake, alert. LABORATORY DATA: Her bilirubin is 1.6, AST of 362, ALT of 257. The intraoperative cholangiogram showed a filling defect consistent with choledocholithiasis. ASSESSMENT: Choledocholithiasis. PLAN: She is scheduled for ERCP today. Job ID: [id number]
--- NOTE | 2020-04-19 12:52 | RAD ---
EXAM: ERCP HISTORY: Stone removal and stent placement COMPARISON: Cholangiogram 04/18/2020 FINDINGS: Limited intraoperative fluoroscopic views were taken during a an ERCP. The previously seen filling defect in the common bile duct is not visualized on this exam. The common bile duct is slightly increased in caliber without filling defect. No leakage from the common bile duct. No abnormality of the intrahepatic bile ducts. Contrast is seen passing into the duodenum. IMPRESSION: Removal of common bile duct stone
[2020-04-19] MEDS ORDERED: Promethazine HCl 25 MG/ML VIAL SLOW IVP PRN (13:00)
[2020-04-19] MEDS ORDERED: HYDROmorphone 2 MG/ML VIAL SLOW IVP PRN (13:00)
[2020-04-19] MEDS ORDERED: PACU-Morphine 4MG/ML VIAL SLOW IVP PRN (13:00)
[2020-04-19] MEDS ORDERED: Ondansetron HCl/PF 4 MG/2 ML Vial IVP PRN (13:00)
[2020-04-19] MEDS ORDERED: Promethazine HCl 25 MG/ML VIAL IM PRN (13:00)
--- NOTE | 2020-04-19 17:29 | PDOC.HOSPP ---
- Subjective Encounter Date: 04/19/20 Encounter Time: 10:30 Subjective: The patient reported persistent dizziness upon evaluation this am. She states that she has been dizzy for months and weak while walking for months. She has had a low heart rate before She states her last meal was on Saturday. No nausea or vomiting. She still has abdominal pain and is waiting for an ERCP Pt reports history of murmur, but has not had an ECHO done yet - Objective Vital Signs & Weight: Vital Signs (12 hours) Temp Pulse Resp BP Pulse Ox 04/19/20 08:00 97.7 F 45 L 14 131/78 97 Weight Weight 150 lb I&O: 04/18/20 04/19/20 04/20/20 06:59 06:59 06:59 Intake Total 840 Balance 840 Result Diagrams: 04/19/20 04:46 04/19/20 04:46 Additional Labs: Accuchecks 04/18/20 19:10 POC Glucose 160 H Hospitalist ROS - Review of Systems Constitutional: denies: fever, chills - Medication Medications: Active Medications Generic Name Dose Route Start Last Admin Trade Name Freq PRN Reason Stop Dose Admin Al Hydroxide/Mg Hydroxide 15 ml 04/18/20 11:52 04/18/20 15:26 Maalox PO 15 ml Q6H PRN Administration Dyspepsia Famotidine 20 mg 04/18/20 21:00 04/19/20 10:26 Pepcid PO Not Given Q12HR [facility] Famotidine 20 mg 04/18/20 21:00 04/19/20 10:27 Pepcid SLOW IVP Not Given Q12HR [facility] Cefoxitin Sodium/Dextrose 2 gm 50 mls @ 100 mls/hr 04/18/20 17:00 04/19/20 10 :26 / Device IVPB Not Given 0100,0900,1700 [facility] Fentanyl Citrate 2,000 mcg/ 100 mls @ 0 mls/hr 04/18/20 16:29 04/18/20 17:14 Sodium Chloride IV 100 mls INF PRN Administration Pain As Directed Ketorolac Tromethamine 30 mg 04/18/20 18:00 04/19/20 12:31 Toradol IVP 04/20/20 18:01 Not Given Q6HR [facility] - Exam General Appearance: NAD, awake alert Eye: PERRL, anicteric sclera ENT: normocephalic atraumatic, no oropharyngeal lesions Neck: no JVD Heart: RRR, no gallops, no rubs, normal peripheral pulses Heart - other findings: systolic murmur left second intercostal space Respiratory: CTAB, no wheezes, no rales, no ronchi Gastrointestinal: non-distended, normal bowel sounds Gastrointestinal - other findings: RUQ tenderness Extremities: no cyanosis, no clubbing, no edema Skin: normal turgor, no lesions, no rashes Neurological: cranial nerve grossly intact, normal sensation to touch, no focal deficits, no new deficit Hosp A/P - Plan This is a 59 year old female admitted for cholecystectomy, found to have filling defect on cholangiogram, also noted to be bradycardic #S/p laparoscopic cholecystectomy #Possible choledocholelithiasis - s/p lap henry 04/18. Filling defect noted on cholangiogram. ERCP done today, no filling defect evident - currently on [employer] for pain, consider weaning - clear liquid diet per GI #Bradycardia #Systolic murmur - sinus. Heart rate noted to decrease from 60 to 40's - consider weaning off narcotic - cardiology consult since appears symptomatic from this - ECHO ordered for murmur #Hyperkalemia #Transaminitis - d/c potassium in IV fluids - LFT possibly elevated from cholecystectomy vs stone, however no stone found. Will repeat LFTS #Anemia - Hb 11.8 - will monitor Dispo: transfer to [facility], cardiology consult, ECHO
--- NOTE | 2020-04-19 18:10 | OP ---
DATE OF PROCEDURE: 04/19/2020 PROCEDURE PERFORMED: Endoscopic retrograde cholangiopancreatography with papillotomy. PREMEDICATION: Given by Anesthesiology Department. PREPROCEDURE DIAGNOSES: Status post cholecystectomy, questionable intraoperative cholangiogram for filling defect. POSTPROCEDURE DIAGNOSES: 1. No obvious retained stone. 2. Dilated common bile duct, status post sphincterotomy. DESCRIPTION OF PROCEDURE: Written consents were obtained prior to the procedure. After adequate sedation, the side-viewing endoscope was advanced down the stomach through the pylorus into the duodenum. The ampulla was visualized and appeared grossly normal. With great difficulty, a cannulation was achieved into the common bile duct with assist of a guidewire. Injection of contrast showed a uniformly dilated common bile duct to approximately 12 mm. No obvious filling defect was seen. A generous sphincterotomy was performed with good hemostasis. A 12 to 15 mm biliary balloon was then used to sweep the duct three times. No obvious stone was retrieved. There was prompt excretion of contrast from the bile duct. The intrahepatic biliary tree appeared normal. The instrument was then fully removed. The patient tolerated the procedure well. ASSESSMENT: 1. Dilated common bile duct without any obvious choledocholithiasis. 2. Status post sphincterotomy. RECOMMENDATION: 1. Clear liquid diet today. 2. The patient can be discharged tomorrow if everything goes well. Job ID: [id number]
[2020-04-19 18:11] LABS: ALT (SGPT) 254 U/L (8-55); AST (SGOT) 249 U/L (5-34); Albumin 3.6 g/dL (3.5-5.0); Alkaline Phosphatase 132 U/L (40-110); Anion Gap 11 mmol/L (10-20); BUN (Urea Nitrogen) 6 mg/dL (9.8-20.1); Bilirubin, Total 2.7 mg/dL (0.2-1.2); Calc. Creatinine Clearance 91 mL/min (70-130); Carbon Dioxide 26 mmol/L (22-29); Chloride 107 mmol/L (98-107); Estimated GFR-MDRD 82; Globulin 2.5 g/dL (2.4-3.5); Glucose 139 mg/dL (70-105); Potassium 5.2 mmol/L (3.5-5.1); Protein, Total 6.1 g/dL (6.0-8.3); Sodium 139 mmol/L (136-145)
--- NOTE | 2020-04-19 18:15 | CON ---
DATE OF CONSULTATION: HISTORY OF PRESENT ILLNESS: The patient is a 59-year-old woman, who presented after undergoing surgery was noted to have marked bradycardia. The patient has no previous cardiac history. She states for the past six months, she has had dizziness. She states rarely she feels weak. She has never lost consciousness or fallen. The patient denies having any chest discomfort or dyspnea. The patient has no known cardiac risk factors. PAST MEDICAL HISTORY: None. PAST SURGICAL HISTORY: Lap-band surgery, stomach surgery, and cholecystectomy. SOCIAL HISTORY: Nonsmoker. FAMILY HISTORY: No strong family history of heart disease. ALLERGIES: NO KNOWN DRUG ALLERGIES. PHYSICAL EXAMINATION: GENERAL: This is a well-developed woman, in no acute distress. VITAL SIGNS: Blood pressure 131/78, heart rate is 50. NECK: No jugular venous distention. LUNGS: Clear to auscultation. HEART: Regular rate and rhythm. Normal S1 and S2. 2/6 systolic murmur. ABDOMEN: Nondistended. EXTREMITIES: Showed trace edema. VASCULAR: Radial pulses 2+. LABORATORY DATA: Sodium 135, potassium 5.2, chloride 105, bicarbonate 24 creatinine 0.73, glucose 165. White blood cell count is 8.7, hemoglobin 11.8, hematocrit 36.6, and platelets 139. EKG bradycardia otherwise normal ECG. IMPRESSION: 1. Bradycardia. 2. Status post cholecystectomy. This patient presents after undergoing a cholecystectomy. She was found to have marked bradycardia. Her TSH level is normal. The patient does have some symptoms of dizziness. We will monitor the patient on telemetry. We will check the patient's echocardiogram. We will follow this patient with you through her hospitalization. We would avoid as much as possible medications that will slow her heart rate including pain medications. Job ID: [id number] [facility]
[2020-04-20] MEDS: Ketorolac Tromethamine 30 MG/ML VIAL IVP SCH ×3 (00:27→11:45)
[2020-04-20] MEDS: cefOXitin Sodium/Dextrose,Iso 2 GM in Premix Bag 1 BAG IVPB SCH ×2 (01:10→08:51)
[2020-04-20 05:28] LABS: Hemoglobin 10.6 g/dL (12.0-16.0); Mean Corpuscular HGB CONC 32.5 g/dL (32.0-36.0); Mean Corpuscular Hemoglobin 31.4 pg (27.0-31.0); Mean Corpuscular Volume 96.6 fL (78.0-98.0); Mean Platelet Volume 10.7 fL (7.4-10.4); Platelet Count 105 thou/uL (130-400); RBC Distribution Width 11.2 % (11.5-14.5); Red Blood Cell (RBC) Count 3.36 mill/uL (4.20-5.40); White Blood Cell (WBC) Count 6.8 thou/uL (4.8-10.8)
[2020-04-20] MEDS ORDERED: Hydrocodone-Acetamin 15 ML UDCUP PO PRN ×2 (08:44)
[2020-04-20] MEDS ORDERED: Fentanyl 100 MCG/2 ML VIAL SLOW IVP PRN (08:45)
[2020-04-20] MEDS: Famotidine 20 MG TAB PO SCH (08:51)
[2020-04-20] MEDS: Famotidine/PF 20 mg/2ml Vial SLOW IVP SCH (08:52)
[2020-04-20] MEDS ORDERED: traMADol HCl 50 MG TAB PO PRN ×2 (09:10→11:12)
[2020-04-20 09:53] LABS: ALT (SGPT) 188 U/L (8-55); AST (SGOT) 137 U/L (5-34); Albumin 3.3 g/dL (3.5-5.0); Alkaline Phosphatase 125 U/L (40-110); Anion Gap 11 mmol/L (10-20); BUN (Urea Nitrogen) 8 mg/dL (9.8-20.1); Bilirubin, Total 1.5 mg/dL (0.2-1.2); Calc. Creatinine Clearance 94 mL/min (70-130); Calcium 8.5 mg/dL (7.8-10.44); Carbon Dioxide 27 mmol/L (22-29); Chloride 105 mmol/L (98-107); Estimated GFR-MDRD 85; Globulin 2.2 g/dL (2.4-3.5); Glucose 84 mg/dL (70-105); Potassium 4.2 mmol/L (3.5-5.1); Protein, Total 5.5 g/dL (6.0-8.3); Sodium 139 mmol/L (136-145)
[2020-04-20 13:42] VITALS: BP 131/61; TEMP 97.1
--- NOTE | 2020-04-20 19:33 | DIS ---
DATE OF ADMISSION: 04/18/2020 DATE OF DISCHARGE: 04/20/2020 DISCHARGE DIAGNOSES: 1. Status post elective cholecystectomy with possible choledocholithiasis. 2. Transaminitis. 3. Anemia. 4. Hyperkalemia. 5. Bradycardia. CONSULTATIONS: Dr. Bhupinder Cabrera with GI. PROCEDURES: Cholecystectomy on 04/18 and ERCP on 04/19 with papillotomy, status post sphincterotomy. BRIEF HISTORY OF PRESENT ILLNESS: This is a 59-year-old female, who was admitted to the hospital for scheduled laparoscopic cholecystectomy with cholangiogram. The patient reported a few-month history of right upper quadrant abdominal pain with nausea. During the procedure, the patient had sinus bradycardia on her EKG and was shaking. She was admitted to the medical floor for further monitoring. HOSPITAL COURSE: Status post cholecystectomy: The patient underwent a cholecystectomy on 04/18. She was transferred to telemetry floor. The patient tolerated her cholecystectomy well. She was advanced to regular diet and tolerated this at the time of discharge. She will follow up with Dr. Christianson in the clinic within a week. The patient was discharged with tramadol 50 mg daily p.r.n. for 3 days, and she was requiring morphine [employer] W[employer]TER while in the hospital. I checked [employer] and the patient has not filled any narcotic prescriptions in the past two years. She was sent home with cefdinir for antibiotic prophylaxis for an additional 5 days. Bradycardia: The patient had a Code Green called due to chest pain and bradycardia after the procedure. Heart ranged from 47 to 64. She reported dizziness and weakness for months. She was transferred to telemetry and heart rate remained stable in the 50's and she was asymptomatic at the time of discharge. Dr. Whelan recommended follow up in his clinic and evaluation of holter monitor at that time. Possible choledocholithiasis: During the patient's cholecystectomy, the patient had an intraoperative cholangiogram, which showed possible filling defect. GI was consulted, and the patient underwent a sphincterotomy and was found to have a dilated common bile duct. There was no stone found indicating she may have passed it. She was discharged on cefdinir prophylactically for antibiotics for additional 5 days. Transaminitis: The patient presented with an AST of 232, which increased to 362 on 04/19. After her sphincterotomy, her LFTs down trended and came down to 137, ALT 188, alkaline phosphatase 125. She has no abdominal pain at the time of discharge. She will follow up with Dr. Cabrera in the clinic in 1 week. Hyperkalemia: The patient had a potassium of 5.2 while in the hospital. Serial BMPs were trended. Her potassium came down to 4.2. DISCHARGE PHYSICAL EXAMINATION: VITAL SIGNS: Temperature 97.1, heart rate 64, respiratory rate 20, O2 saturation 95% on room air, and blood pressure 131/61. GENERAL: The patient is alert, awake, and oriented x3. CVS: Regular rate and rhythm with no murmurs, rubs, or gallops. LUNGS: Clear to auscultation bilaterally. ABDOMEN: Positive bowel sounds, soft, nontender, nondistended. Her incisions look clean with no signs of infection. EXTREMITIES: No edema. PERTINENT LABORATORY DATA: CBC on 04/20: White count 6.8, hemoglobin 10.6, hematocrit 32.5, and platelet count 105. BMP on 04/20: Normal. LFTs on 04/20: AST 137, ALT 188, alkaline phosphatase 125. IMAGING: Intraoperative cholangiogram on 04/18: Shows possible distal common bile duct filling with lack of passage of the contrast into the duodenum. Chest x-ray on 04/18: Shows no acute cardiopulmonary process. Abdominal x-ray on 04/18: Nonspecific bowel gas pattern. Possible iatrogenic free air. ERCP x-ray on 04/19: Shows previous filling defect in the common bile duct is resolved. DISCHARGE CONDITION: Stable. ACTIVITY: As tolerated. DIET: Low-fat diet. DISCHARGE MEDICATIONS: 1. Zofran 4 mg p.o. q.4 hours p.r.n. 2. Cefdinir 300 mg p.o. q.12 hours for 5 days. 3. Tramadol 50 mg p.o. q.6 hours p.r.n. Written script was provided. DISCHARGE INSTRUCTIONS: The patient should follow up with her PCP in a week. She will also follow up with Dr. Pabon in a week and have repeat LFTs in a week. She will also follow up with Dr. Christianson in 1 to 2 weeks. Also follow up with Dr. Whelan , who may consider placing a Holter monitor on you for further evaluation of bradycardia. Job ID: [id number] [facility]
--- NOTE | 2020-04-21 17:03 | DIS ---
DATE OF ADMISSION: 04/18/2020 DATE OF DISCHARGE: 04/20/2020 DISCHARGE DIAGNOSES: Symptomatic cholelithiasis, choledocholithiasis, postoperative bradycardia. HOSPITAL COURSE: The patient was admitted, taken to the operating room, where she underwent laparoscopic cholecystectomy with cholangiogram. Intraoperatively, the cholangiogram showed a filling defect and no flow into the duodenum. Postoperatively, GI was consulted. She underwent ERCP with sphincterotomy. Post procedure, she got much better. The pain was relieved. Her LFTs came down. She is now tolerating diet and pain is controlled on p.o. medications. She is discharged home on hydrocodone and Zofran. She will follow up with me in 2 weeks. Job ID: [id number]
== END 2020-04-20 14:57 | disposition home or self-care (01) | DRG 418 ==
LOC: SDC 07:49 → SJJU 11:54 → 2NO 04-19 15:40
PROVIDERS: ADMIT Surgery; ATTEND Surgery
PROC: 0FT44ZZ Resection of Gallbladder, Percutaneous Endoscopic Approach (ICD-10-PCS; principal; 2020-04-18)
PROC: BF13YZZ Fluoroscopy of Gallbladder and Bile Ducts using Other Contrast (ICD-10-PCS; 2020-04-18)
PROC: 0F798ZZ Dilation of Common Bile Duct, Via Natural or Artificial Opening Endoscopic (ICD-10-PCS; 2020-04-19)
DX: K80.70 Calculus of gallbladder and bile duct without cholecystitis without obstruction (principal); I97.191 Other postprocedural cardiac functional disturbances following other surgery; E66.9 Obesity, unspecified; I10 Essential (primary) hypertension; R01.1 Cardiac murmur, unspecified; D64.9 Anemia, unspecified; K83.8 Other specified diseases of biliary tract; R93.2 Abnormal findings on diagnostic imaging of liver and biliary tract; Y83.8 Other surgical procedures as the cause of abnormal reaction of the patient, or of later complication, without mention of misadventure at the time of the procedure; E87.5 Hyperkalemia; R74.0 Nonspecific elevation of levels of transaminase and lactic acid dehydrogenase [LDH]; Z98.51 Tubal ligation status; Z98.84 Bariatric surgery status; Z68.27 Body mass index [BMI] 27.0-27.9, adult
CPT/HCPCS: 36415; 36416; 47532; 71045; 74018; 74330; 80053; 83690; 83735; 84443; 84484; 85025; 85027; 88304; 93005; 93010; 93306; J0694; J1100; J1170; J1610; J1885; J2250; J2270; J2405; J2704; J3010; J3480; J3490; S0020; S0028